=== PATIENT | female | born 1965 | race Caucasian/White ===

== ENCOUNTER 2016-05-16 11:20 | Emergency (ER) | payer SELFPAY ==
[2016-05-16] MEDS ORDERED: Sodium Chloride 0.9% 1,000 ML ONE (12:01)
[2016-05-16] MEDS ORDERED: Metoclopramide HCl 10 MG/2 ML VIAL ONE (12:07)
[2016-05-16] MEDS ORDERED: Sodium Chloride 0.9% 100 ML ONE (12:07)
[2016-05-16] MEDS ORDERED: diphenhydrAMINE HCl 50 MG/ML 1 ML VIAL ONE (12:07)
--- NOTE | 2016-05-16 13:30 | PICIS ---
[facility] EMERGENCY RECORD TRIAGE ([facility] May 16, 2016 11:24 BDON) PATIENT: NAME: Zulma Sequeira, AGE: 50, GENDER: female, : Sat 1965, TIME OF GREET: Sat May 16, 2016 11:21, ECODE BILLING MAP: [facility], Zip Code: [address], KG WEIGHT: 61.23, PHONE: , , , PERSON ID: [id number], PCP: MD Foss Jacques. ([facility] May 16, 2016 11:24 BDON) TRIAGE NOTES: Pain starts back of neck and comes forward associated with vomiting. ([facility] May 16, 2016 11:24 BDON) COMPLAINT: MIGRAINE. ([facility] May 16, 2016 11:24 BDON) ADMISSION: URGENCY: 3 Urgent, ADMISSION SOURCE: Home, TRANSPORT: Walk-in, BED: TRIAGE. ([facility] May 16, 2016 11:24 BDON) ASSESSMENT: Assessment: Headache starting at base of back neck and radiates to forehead, Symptoms began 5 hours ago. (11:27 BDON) TREATMENTS IN PROGRESS: Treatments given Prehospital: generic mag salt,. (11:27 BDON) PROVIDERS: TRIAGE NURSE: Lakshmi Mckee RN. ([facility] May 16, 2016 11:24 BDON) VITAL SIGNS: Temp 97.6, (Tympanic), Time 05/16/2016 11:25. (11:25 BDON) KNOWN ALLERGIES No Known Drug Allergies CURRENT MEDICATIONS (11:25 BDON) None VITAL SIGNS VITAL SIGNS: BP: 144/68, Pulse: 72, Resp: 19, Pain: 8, O2 sat: 100, Time: 05/16/2016 11:24. (11:24 BDON) Temp: 97.6 (Tympanic), Time: 05/16/2016 11:25. (11:25 BDON) Pulse: 78, Resp: 17, Pain: 3, Time: 05/16/2016 13:29. (13:29 BDON) NURSING ASSESSMENT: HEADACHE (11:29 BDON) CONSTITUTIONAL: Patient arrives ambulatory, Gait steady, History obtained from patient, Patient appears, in distress due to pain, Patient cooperative, Patient alert, Oriented to person, place and time, Skin warm, Skin dry, Skin normal in color. PAIN: to the frontal region, to the neck. HEADACHE: Headache assessment findings include headache not worst of life, history of migraines, no associated difficulty concentrating, Associated with vomiting. NEURO: Able to close eyes, Face symmetrical, Speech normal, no visual changes, no facial droop, no facial numbness, no swelling, GCS:, Eye opening: (4) - Spontaneous, Verbal: (5) - Oriented/conversive, Motor: (6) - Obeys commands/Spontaneous, Associated with vomiting. ENT: no complaint of congestion. SAFETY: Cart/Stretcher in lowest position, Family at bedside, Hospital ID band on, Patient in view of the nursing station. &a-1R&a+25V*p+0X*b7401C*c202B*c15G*c2P*p-0X&a-25V&a+1R Name: Zulma Sequeira : 1965 F50 MedRec: [id number] AcctNum: [id number] Prepared: Sat May 16, 2016 13:45 by Interface Page 1 of 6 pMD [facility] EMERGENCY RECORD NURSING PROCEDURE: DISCHARGE NOTE (13:29 BDON) DISCHARGE: Patient discharged to home, ambulating without assistance, family driving, Summary of Care printed/ provided, Patient requested and was provided an electronic copy of Discharge Instructions, Transition record given to patient, Discharge instructions given to patient, Simple or moderate discharge teaching performed, Patient treated and evaluated by physician, Notes: decrease pain, improving. VITAL SIGNS: Pulse: 78, Resp: 17, Pain: 3. NURSING PROCEDURE: IV PATIENT IDENITIFIER: Patient actively involved in identification process. (12:10 BDON) Patient actively involved in identification process. (13:28 BDON) IV SITE 1: IV therapy indicated for hydration, IV therapy indicated for medication administration, IV established, to the right antecubital, using a 20 gauge catheter, in one attempt. (12:10 BDON) FOLLOW-UP SITE 1: IV discontinued, due to patient being discharged, catheter intact. (13:28 BDON) NURSING PROCEDURE: NURSE NOTES NURSES NOTES: Notes: Education on migraine medications, lights turned off, family at bedside. (12:22 BDON) Notes: normal saline infusing. (12:37 BDON) Notes: Patient resting with family at bedside. RR even and unlabored. No new complaints at this time. Another warm blanket given for comfort. Pt reports 7/10 pain. Lights dimmed for comfort. IV fluids infusing. (12:44 EPIE) Notes: fluid infusing, family at bedside. (12:52 BDON) Patient states decreased pain, Notes: slight decrease ...slight, encouraged to keep arm straight so iv fluid can infuse. (13:01 BDON) ORDER DETAILS Order Name: SALINE LOCK, Status: Done, Time: 12:13 05/16/2016, User: BDON, - Ordered for: MD Bryan Joshua, - Entered by: MD Bryan Joshua - Sat May 16, 2016 12:00, - Quantity: 1. MEDICATION ADMINISTRATION SUMMARY Drug Name: metoclopramide injection, Dose Ordered: 10 mg, Route: IV Push, Status: Given, Time: 12:14 05/16/2016, Drug Name: sodium chloride 0.9 % intravenous, Dose Ordered: 1 L, Route: IV Fluid Infusion, Status: Given, Time: 12:13 05/16/2016, Drug Name: diphenhydrAMINE injection, Dose Ordered: 25 mg, Route: IV Push, Status: Given, Time: 12:12 05/16/2016, Detailed record available &a-1R&a+25V*p+0X*k5992D*c202B*c15G*c2P*p-0X&a-25V&a+1R Name: Zulma Sequeira : 1965 F50 MedRec: [id number] AcctNum: [id number] Prepared: Sat May 16, 2016 13:45 by Interface Page 2 of 6 pMD [facility] EMERGENCY RECORD in Medication Service section. MEDICATION SERVICE diphenhydrAMINE injection: Order: diphenhydrAMINE injection (diphenhydramine HCl) - Dose: 25 mg : IV Push Ordered by: Porfirio Bryan MD Entered by: Porfirio Bryan MD Sat May 16, 2016 12:01 Documented as given by: Irene Turner RN Sat May 16, 2016 12:12 Patient, Medication, Dose, Route and Time verified prior to administration. Amount given: 25mg, IV SITE #1 IVP, initial medication, Slowly, Awake and alert- acceptable, Catheter placement confirmed via flush prior to administration, IV site without signs or symptoms of infiltration during medication administration, No swelling during administration, No drainage during administration, IV flushed after administration, Correct patient, time, route, dose and medication confirmed prior to administration, Patient advised of actions and side-effects prior to administration, Allergies confirmed and medications reviewed prior to administration. metoclopramide injection: Order: metoclopramide injection (metoclopramide HCl) - Dose: 10 mg : IV Push Ordered by: Porfirio Bryan MD Entered by: Porfirio Bryan MD Sat May 16, 2016 12:01 Documented as given by: Irene Turner RN Sat May 16, 2016 12:14 Patient, Medication, Dose, Route and Time verified prior to administration. Amount given: 10mg, IV SITE #1 IVPB or drip, initial infusion, IVPB mixed in: 100ml, Fluid: 0.9NS, via primary tubing, Catheter placement confirmed via flush prior to administration, IV site without signs or symptoms of infiltration during medication administration, No swelling during administration, No drainage during administration, IV flushed after administration, Correct patient, time, route, dose and medication confirmed prior to administration, Patient advised of actions and side-effects prior to administration, Allergies confirmed and medications reviewed prior to administration. : Follow Up : Response assessment performed, No signs or symptoms of allergic reaction noted, _IV SITE #1:_, Medication infusion discontinued, on Sat May 16, 2016 12:35, 25 minutes, ., Total amount infused: 100ML, IV Line flushed after administration. (12:35 EPIE) sodium chloride 0.9 % intravenous: Order: sodium chloride 0.9 % intravenous (0.9 % sodium chloride) - Dose: 1 L : IV Fluid Infusion Ordered by: Porfirio Bryan MD Entered by: Porfirio Bryan MD Sat May 16, 2016 12:01 Documented as given by: Lakshmi Mckee RN Sat May 16, 2016 12:13 Patient, Medication, Dose, Route and Time verified prior to administration. IV SITE #1 IV fluids established for hydration, Patient in position of comfort, Cart in lowest position, Family at bedside. &a-1R&a+25V*p+0X*n5935V*c202B*c15G*c2P*p-0X&a-25V&a+1R Name: Zulma Sequeira : 1965 F50 MedRec: [id number] AcctNum: [id number] Prepared: Sat May 16, 2016 13:45 by Interface Page 3 of 6 pMD [facility] EMERGENCY RECORD : Follow Up : No signs or symptoms of allergic reaction noted, _IV SITE #1:_, IV fluid infusion discontinued, on Sat May 16, 2016 13:04, 55 minutes, . (13:09 BDON) HPI HEADACHE (12:01 JLOY) CHIEF COMPLAINT: Patient presents for evaluation of migraine headache, Pt with history of recurrent migraines. Usually responds to Maxalt but occasionally she needs to come in for an injection. AGUILERA started at 0730 in the occiput and gradually worsened and radiated to left frontal region. 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 HISTORIAN: History provided by patient. LOCATION: Symptoms are localized, most severe in the frontal region. QUALITY: Pain is dull in nature. TIME COURSE: Gradual onset of symptoms, Symptoms are worsening, Symptoms are constant. ASSOCIATED WITH FEMALE: No associated aura, No associated chills, No associated fever, No associated focal weakness, No posterior circulation symptoms present, No associated syncope, No associated trauma, No associated tingling, No associated numbness, No associated upper respiratory infection. EXACERBATED BY: Patient's condition exacerbated by light. RELIEVED BY: Patient's condition relieved by nothing. ROS (12:03 JLOY) CONSTITUTIONAL: Historian denies chills, denies fever. EYES: Historian denies eye pain, denies eye redness, denies eye discharge, reports photophobia, denies vision changes. ENT: Historian denies rhinorrhea, denies sore throat. CARDIOVASCULAR: Historian denies chest pain. RESPIRATORY: Historian denies cough, denies shortness of breath, denies sputum. GI: Historian denies abdominal pain, denies diarrhea, reports nausea, reports vomiting. GENITOURINARY FEMALE: Historian denies dysuria, denies frequency, denies hematuria. MUSCULOSKELETAL: Historian denies back pain. SKIN: Historian denies rash, denies skin changes. NEUROLOGIC: Historian denies dizziness, reports headache, denies paralysis, denies paresthesias, denies sensory changes. PAST MEDICAL HISTORY MEDICAL HISTORY: Flu vaccine not up to date, Tetanus not up to date, Past medical history includes neurological disease, migraine headaches. (11:27 BDON) FEMALE SURGICAL HISTORY: breast implants. (11:27 BDON) PSYCHIATRIC HISTORY: No previous psychiatric history. (11:27 BDON) SOCIAL HISTORY: Patient denies alcohol use, Patient denies drug &a-1R&a+25V*p+0X*y4508M*c202B*c15G*c2P*p-0X&a-25V&a+1R Name: Zulma Sequeira : 1965 F50 MedRec: [id number] AcctNum: [id number] Prepared: Sat May 16, 2016 13:45 by Interface Page 4 of 6 pMD [facility] EMERGENCY RECORD use, Patient has no smoking history, Lives at home, with family. (11:27 BDON) NOTES: Nursing records reviewed, Agree with nursing records. (12:04 JL) PHYSICAL EXAM (12:03 JL) CONSTITUTIONAL: Vital Signs Reviewed, Patient appears non toxic, Patient alert and oriented to person, place and time. EYES: Eye exam included findings of eyelids normal to inspection, Pupils equally round and reactive to light, Conjunctiva normal. ENT: Pharynx exam normal, Uvula exam normal, Tonsil exam normal, Mouth exam normal, mucous membranes moist. NECK: Neck exam included findings of normal range of motion, Trachea midline. RESPIRATORY CHEST: Respiratory exam included findings of no respiratory distress, Breath sounds clear, No wheezing, No rales, No rhonchi, Chest exam included findings of chest movement symmetrical. CARDIOVASCULAR: Cardiovascular exam included findings of heart rate regular rate and rhythm, Heart sounds normal. ABDOMEN FEMALE: Abdominal exam included findings of abdomen nontender, Bowel sounds normal. BACK: Back exam included findings of normal inspection, range of motion normal. UPPER EXTREMITY: Upper extremity exam included findings of inspection normal, Radial pulse normal, no cyanosis, no clubbing, no edema. LOWER EXTREMITY: Lower extremity exam included findings of inspection normal, no edema, no calf tenderness. NEURO: Tivoli coma scale 15, Neuro exam findings include patient oriented to person, place and time, Speech normal. SKIN: Skin exam included findings of skin warm, dry, and normal in color, no rash. PSYCHIATRIC: Normal affect. EVENTS TRANSFER: Triage to Emergency Triage. (11:24 BDON) Emergency Triage to Emergency Room -04. (11:25 BDON) Removed from Emergency Emergency Room -04. (13:34 BDON) DOCTOR NOTES (13:24 JLOY) RE-EVALUATION: The patient's condition has improved, Pt reports AGUILERA almost gone. Would like to go home and sleep. PROBLEM LIST No recorded problems DIAGNOSIS (13:25 JLOY) FINAL: PRIMARY: Migraine (unspecified). DISPOSITION &a-1R&a+25V*p+0X*q1315X*c202B*c15G*c2P*p-0X&a-25V&a+1R Name: Zulma Sequeira : 1965 F50 MedRec: [id number] AcctNum: [id number] Prepared: Sanjeev May 16, 2016 13:45 by Interface Page 5 of 6 pMD [facility] EMERGENCY RECORD PATIENT: Disposition Type: Discharge, Disposition: *Discharge Home. (13:25 JLOY) Patient left the department. (13:34 BDON) INSTRUCTION (13:25 JLOY) DISCHARGE: CEPHAL[place]IA MIGRAINE HEADACHE. [facility] [address] [place] [id number], , Follow up with Primary Care Physician in 7-10 days. PRESCRIPTION No recorded prescriptions IMAGING (13:33 BDON) *DISCHARGE INSTRUCTIONS RECEIPT: Image captured from scanner. *SUPPLY CHARGE SHEET: Image captured from scanner. ADMIN DIGITAL SIGNATURE: MD Irvin, Porfirio. (13:26 JLOY) SCOTTY Mckee Bettye. (13:34 BDON) Givens: BDMARILU=SCOTTY Mckee Bettye EPIE=SCOTTY Turner, Irene JLOY=MD Bryan Joshua &a-1R&a+25V*p+0X*h2427Z*c202B*c15G*c2P*p-0X&a-25V&a+1R Name: Zulma Sequeira : 1965 F50 MedRec: [id number] AcctNum: [id number] Prepared: Sanjeev May 16, 2016 13:45 by Interface Page 6 of 6 pMD MTDD
--- NOTE | 2016-05-16 13:30 | ERRECORD ---
[facility] EMERGENCY RECORD HPI HEADACHE (12:01 JLOY) CHIEF COMPLAINT: Patient presents for evaluation of migraine headache, Pt with history of recurrent migraines. Usually responds to Maxalt but occasionally she needs to come in for an injection. AGUILERA started at 0730 in the occiput and gradually worsened and radiated to left frontal region. 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 HISTORIAN: History provided by patient. LOCATION: Symptoms are localized, most severe in the frontal region. QUALITY: Pain is dull in nature. TIME COURSE: Gradual onset of symptoms, Symptoms are worsening, Symptoms are constant. ASSOCIATED WITH FEMALE: No associated aura, No associated chills, No associated fever, No associated focal weakness, No posterior circulation symptoms present, No associated syncope, No associated trauma, No associated tingling, No associated numbness, No associated upper respiratory infection. EXACERBATED BY: Patient's condition exacerbated by light. RELIEVED BY: Patient's condition relieved by nothing. ROS (12:03 JLOY) CONSTITUTIONAL: Historian denies chills, denies fever. EYES: Historian denies eye pain, denies eye redness, denies eye discharge, reports photophobia, denies vision changes. ENT: Historian denies rhinorrhea, denies sore throat. CARDIOVASCULAR: Historian denies chest pain. RESPIRATORY: Historian denies cough, denies shortness of breath, denies sputum. GI: Historian denies abdominal pain, denies diarrhea, reports nausea, reports vomiting. GENITOURINARY FEMALE: Historian denies dysuria, denies frequency, denies hematuria. MUSCULOSKELETAL: Historian denies back pain. SKIN: Historian denies rash, denies skin changes. NEUROLOGIC: Historian denies dizziness, reports headache, denies paralysis, denies paresthesias, denies sensory changes. PAST MEDICAL HISTORY MEDICAL HISTORY: Flu vaccine not up to date, Tetanus not up to date, Past medical history includes neurological disease, migraine headaches. (11:27 BDON) FEMALE SURGICAL HISTORY: breast implants. (11:27 BDON) PSYCHIATRIC HISTORY: No previous psychiatric history. (11:27 BDON) SOCIAL HISTORY: Patient denies alcohol use, Patient denies drug use, Patient has no smoking history, Lives at home, with family. (11:27 BDON) NOTES: Nursing records reviewed, Agree with nursing records. (12:04 [facility]) &a-1R&a+25V*p+0X*r4186O*c202B*c15G*c2P*p-0X&a-25V&a+1R Name: Zulma Sequeira : 1965 F50 MedRec: [id number] AcctNum: [id number] Prepared: Sat May 16, 2016 13:40 by Interface Page 1 of 3 pMD [facility] EMERGENCY RECORD KNOWN ALLERGIES No Known Drug Allergies CURRENT MEDICATIONS (11:25 BDON) None VITAL SIGNS VITAL SIGNS: BP: 144/68, Pulse: 72, Resp: 19, Pain: 8, O2 sat: 100, Time: 05/16/2016 11:24. (11:24 BDON) Temp: 97.6 (Tympanic), Time: 05/16/2016 11:25. (11:25 BDON) Pulse: 78, Resp: 17, Pain: 3, Time: 05/16/2016 13:29. (13:29 BDON) PHYSICAL EXAM (12:03 [facility]) CONSTITUTIONAL: Vital Signs Reviewed, Patient appears non toxic, Patient alert and oriented to person, place and time. EYES: Eye exam included findings of eyelids normal to inspection, Pupils equally round and reactive to light, Conjunctiva normal. ENT: Pharynx exam normal, Uvula exam normal, Tonsil exam normal, Mouth exam normal, mucous membranes moist. NECK: Neck exam included findings of normal range of motion, Trachea midline. RESPIRATORY CHEST: Respiratory exam included findings of no respiratory distress, Breath sounds clear, No wheezing, No rales, No rhonchi, Chest exam included findings of chest movement symmetrical. CARDIOVASCULAR: Cardiovascular exam included findings of heart rate regular rate and rhythm, Heart sounds normal. ABDOMEN FEMALE: Abdominal exam included findings of abdomen nontender, Bowel sounds normal. BACK: Back exam included findings of normal inspection, range of motion normal. UPPER EXTREMITY: Upper extremity exam included findings of inspection normal, Radial pulse normal, no cyanosis, no clubbing, no edema. LOWER EXTREMITY: Lower extremity exam included findings of inspection normal, no edema, no calf tenderness. NEURO: Praneeth coma scale 15, Neuro exam findings include patient oriented to person, place and time, Speech normal. SKIN: Skin exam included findings of skin warm, dry, and normal in color, no rash. PSYCHIATRIC: Normal affect. MEDICATION ADMINISTRATION SUMMARY Drug Name: metoclopramide injection, Dose Ordered: 10 mg, Route: IV Push, Status: Given, Time: 12:14 05/16/2016, Drug Name: sodium chloride 0.9 % intravenous, Dose Ordered: 1 L, Route: IV Fluid Infusion, Status: Given, Time: 12:13 05/16/2016, Drug Name: diphenhydrAMINE injection, Dose Ordered: 25 mg, Route: IV Push, Status: Given, Time: 12:12 05/16/2016, Detailed record available &a-1R&a+25V*p+0X*m8537C*c202B*c15G*c2P*p-0X&a-25V&a+1R Name: Zulma Sequeira : 1965 F50 MedRec: [id number] AcctNum: [id number] Prepared: Sat May 16, 2016 13:40 by Interface Page 2 of 3 pMD [facility] EMERGENCY RECORD in Medication Service section. DOCTOR NOTES (13:24 JLOY) RE-EVALUATION: The patient's condition has improved, Pt reports AGUILERA almost gone. Would like to go home and sleep. PROBLEM LIST No recorded problems DIAGNOSIS (13:25 JLOY) FINAL: PRIMARY: Migraine (unspecified). PRESCRIPTION No recorded prescriptions DISPOSITION PATIENT: Disposition Type: Discharge, Disposition: *Discharge Home. (13:25 JLOY) Patient left the department. (13:34 BDON) Givens: NATHAN=SCOTTY Mckee Bettye JLOY=MD Bryan Joshua &a-1R&a+25V*p+0X*y1841E*c202B*c15G*c2P*p-0X&a-25V&a+1R Name: Zulma Sequeira : 1965 F50 MedRec: [id number] AcctNum: [id number] Prepared: Sat May 16, 2016 13:40 by Interface Page 3 of 3 pMD MTDD
== END 2016-05-16 13:29 | disposition home or self-care (01) ==
LOC: NAV ERS 11:20
DX: G43.909 Migraine, unspecified, not intractable, without status migrainosus (principal)
CPT/HCPCS: 96365; 96375; J1200; J2765; J7050